=== PATIENT | male | born 1990 | race Caucasian/White ===

== ENCOUNTER 2019-05-17 19:31 | Emergency (ER) | payer BC ==
[~2019-05-17] VITALS: Ht 182.9 cm; Wt 96.8 kg
[2019-05-17 20:08] VITALS: BP 148/93; TEMP 98.6
[2019-05-17] MEDS ORDERED: LEXAPRO 10MG10 MG PO (20:56)
[2019-05-17] MEDS ORDERED: LAMICTAL200 MG PO (20:56)
[2019-05-17 22:52] VITALS: PULSE 80
== END 2019-05-17 22:54 | disposition home or self-care (01) ==
LOC: COL.ER 19:31
DX: R51 Headache (principal)

== ENCOUNTER → 2023-01-07 | Outpatient (CLI) | payer OTHER ==
[~2023-01-07] MED LIST: LAMICTAL200 MG PO; LEXAPRO 10MG10 MG PO
== END ==
LOC: COL.RAD 15:27
DX: R59.0 Localized enlarged lymph nodes (principal)